=== PATIENT | male | born 1960 | race Caucasian/White ===

== ENCOUNTER 2017-09-27 18:47 | Emergency (ER) | payer OTHER ==
[2017-09-27 19:16] VITALS: BP 141/83
--- NOTE | 2017-09-27 20:03 | UC ---
Knee Pain HPI - HPI Summary HPI Summary: injured left knee while shoveling todays - - History of Current Complaint Hx Obtained From: Patient Onset/Duration: Sudden Onset Severity Initially: Mild Severity Currently: Mild Location Of Injury: left knee Pain Intensity: 0 Character: Aching Aggravating Factor(s): Movement, Weight Bearing Alleviating Factor(s): Rest Able to Bear Weight: Yes <Krystal Ahumada - Last Filed: 09/27/17 21:24> <Carmela Bernardo - Last Filed: 09/28/17 09:12> - History of Current Complaint Chief Complaint: UCLowerExtremity Stated Complaint: LEFT KNEE PAIN Time Seen by Provider: 09/27/17 19:57 - Allergies/Home Medications Allergies/Adverse Reactions: Allergies Allergy/AdvReac Type Severity Reaction Status Date / Time No Known Allergies Allergy Verified 09/08/13 17:52 Home Medications: Home Medications Metoprolol Tartrate TAB* [Lopressor TAB*] 50 mg PO DAILY 09/27/17 [History Confirmed 09/27/17] Multivit-Min/FA/Lycopen/Lutein [Men 50 Plus Multivitamin Tab] 1 each PO DAILY [History Confirmed 09/27/17] PMH/Surg Hx/FS Hx/Imm Hx Previously Healthy: No Endocrine History: Dyslipidemia Cardiovascular History: Hypertension - Surgical History Surgical History: Yes Surgery Procedure, Year, and Place: cardiac stent - Family History Known Family History: Positive: None - Social History Occupation: Employed Full-time Lives: With Family Alcohol Use: Daily Substance Use Type: None Smoking Status (MU): Current Every Day Smoker Type: Cigarettes Amount Used/How Often: 1/2 PPD Length of Time of Smoking/Using Tobacco: 30 YRS Have You Smoked in the Last Year: Yes When Did the Patient Quit Smoking/Using Tobacco: 2 years ago <Krystal Ahumada - Last Filed: 09/27/17 21:24> Review of Systems Constitutional: Negative Skin: Negative Eyes: Negative ENT: Negative Respiratory: Negative Cardiovascular: Negative Gastrointestinal: Negative Genitourinary: Negative Motor: Negative Neurovascular: Negative Musculoskeletal: Arthralgia - left knee Neurological: Negative Psychological: Negative Is Patient Immunocompromised?: No All Other Systems Reviewed And Are Negative: Yes <Krystal Ahumada - Last Filed: 09/27/17 21:24> Physical Exam Triage Information Reviewed: Yes Appearance: Well-Appearing, No Pain Distress, Well-Nourished Vital Signs: Initial Vital Signs Temp 98 F 09/27/17 19:09 Pulse 77 09/27/17 19:09 Resp 18 09/27/17 19:09 BP 141/83 09/27/17 19:09 Pulse Ox 97 09/27/17 19:09 Vital Signs Reviewed: Yes Eye Exam: Normal Eyes: Positive: Conjunctiva Clear ENT Exam: Normal ENT: Positive: Normal ENT inspection, Hearing grossly normal. Negative: Trismus , Muffled voice, Hoarse voice Dental Exam: Normal Neck exam: Normal Neck: Positive: Supple, Nontender Respiratory Exam: Normal Respiratory: Positive: Chest non-tender, No respiratory distress, No accessory muscle use Cardiovascular Exam: Normal Cardiovascular: Positive: RRR, Pulses Normal, Brisk Capillary Refill Musculoskeletal Exam: Normal Musculoskeletal: Positive: Strength Intact, ROM Intact, No Edema Neurological Exam: Normal Neurological: Positive: Alert Psychological Exam: Normal Psychological: Positive: Normal Response To Family, Age Appropriate Behavior Skin Exam: Normal <Krystal Ahumada - Last Filed: 09/27/17 21:24> Vital Signs: Initial Vital Signs Temp 98 F 09/27/17 19:09 Pulse 77 09/27/17 19:09 Resp 18 09/27/17 19:09 BP 141/83 09/27/17 19:09 Pulse Ox 97 09/27/17 19:09 <Carmela Bernardo - Last Filed: 09/28/17 09:12> Diagnostics - Radiology No standard instances Xray Interpretation: Positive (See Comments) - Patient Name: CHARLI DONNELLY Medical Record#: [id number] Ordering Physician: Carmela Bernardo MD Acct.#: [id number] : 1960 Age: 57 Sex: M Location: [facility] Exam Date: 09/27/171917 ADM Status: REG ER Order Information: KNEE LEFT 4+ VWS Accession Number: [id number] CPT: 69861 Indication: Posterior aspect LEFT knee radiating into the calf following possible hyperextension injury today. Comparison: No relevant prior exams available on the [facility] for comparison. Technique: LEFT knee: AP, tunnel, lateral, sunrise views. Report: Negative for joint effusion , articular malalignment, or fracture. Minimal osteophytosis. Mild medial joint compartment joint space narrowing. Irregularity in the contour of the subchondral bone at the medial facet of the undersurface of the patella. 1.1 cm intra-articular body at the paracentral posterior medial joint compartment. Unremarkable soft tissue contours. IMPRESSION: 1. Negative for fracture. 2. Osteoarthritis most prominent at the patellofemoral joint. 3. 1.1 cm intra- articular body at the paracentral posterior medial joint compartment. <Electronically signed by Osvaldo Michele MD in [place]> 09/27/172020 Dictated By: Osvaldo Michele MD Dictated Date/Time: 09/27/172020 Transcribed Date/Time: 09/27/172017 Copy to: CC:Tristen López MD; Carmela Bernardo MD Imaging - [facility] - [facility] [address] [place] [address] ph [phone] ph [phone]) ph ([phone]) 1 of 1 Radiology Interpretation Completed By: ED Physician, Radiologist <Krystal Ahumada - Last Filed: 09/27/17 21:24> Knee Pain Course/Dx - Course Course Of Treatment: mac wrap, crutches, naproxen, hydrocodone, follow with orthopedic MD, follow blood pressure with pcp - Differential Dx/Diagnosis Provider Diagnoses: left knee sprain, elevated Blood pressure with history of hypertension <Krystal Ahumada - Last Filed: 09/27/17 21:24> Discharge - Sign-Out/Discharge Documenting (check all that apply): Discharge/Admit/Transfer - Billing Disposition and Condition Condition: STABLE Disposition: HOME <Krystal Ahumada - Last Filed: 09/27/17 21:24> - Billing Disposition and Condition Condition: STABLE Disposition: HOME <Carmela Bernardo - Last Filed: 09/28/17 09:12> - Discharge Plan Condition: Stable Disposition: HOME Prescriptions: Hydrocodone/Acetaminophen [Hydrocodone-Acetamin 5-325 mg] 1 each PO Q6HR PRN # 16 tablet MDD 4 PRN Reason: Pain - Moderate To Severe Naproxen Sodium [Naproxen Sodium 500 MG TAB] 500 mg PO BID PRN #30 tab PRN Reason: Pain Scale 1-5 Patient Education Materials: Knee Sprain (ED), Hypertension (ED) Forms: *Work Release Referrals: Yonatan Ch MD [Medical Doctor] - 2 Days Tristen López MD [Primary Care Provider] - 2 Weeks Attestation Statement User Type: Provider - I was available for consult. This patient was seen by the [facility]. The patient was not presented to, seen by, or examined by me. -Niki <Carmela Bernardo - Last Filed: 09/28/17 09:12>
--- NOTE | 2017-09-27 20:24 | RAD ---
Indication: Posterior aspect LEFT knee radiating into the calf following possible hyperextension injury today. Comparison: No relevant prior exams available on the [facility] for comparison. Technique: LEFT knee: AP, tunnel, lateral, sunrise views. Report: Negative for joint effusion, articular malalignment, or fracture. Minimal osteophytosis. Mild medial joint compartment joint space narrowing. Irregularity in the contour of the subchondral bone at the medial facet of the undersurface of the patella. 1.1 cm intra-articular body at the paracentral posterior medial joint compartment. Unremarkable soft tissue contours. IMPRESSION: 1. Negative for fracture. 2. Osteoarthritis most prominent at the patellofemoral joint. 3. 1.1 cm intra-articular body at the paracentral posterior medial joint compartment.
[2017-09-27] MEDS ORDERED: HYDROcodone/ACETAMIN 5-325 MG* 1 TAB PO ONE (20:51)
== END 2017-09-27 21:12 | disposition home or self-care (01) ==
LOC: UCCORT 18:47
DX: S83.92XA Sprain of unspecified site of left knee, initial encounter (principal); Y93.H1 Activity, digging, shoveling and raking; Y92.9 Unspecified place or not applicable; Y99.9 Unspecified external cause status; I10 Essential (primary) hypertension; F17.210 Nicotine dependence, cigarettes, uncomplicated
CPT/HCPCS: 99203; G0463

== ENCOUNTER 2018-02-26 11:31 | Emergency (ER) | payer OTHER ==
[2018-02-26 11:50] VITALS: BP 141/79
--- NOTE | 2018-02-26 12:28 | UC ---
Ear Complaint HPI - HPI Summary HPI Summary: Pt c/o gradual onset of right lower jaw pain that radiates to right ear. Pt c/o swelling at the gonial angle. Pt states the pain worsens with chewing and with opening and closing mouth. Pt has dentures that he has had "forever" and denies any recent injury or dental trauma - History of Current Complaint Chief Complaint: UCSkin Stated Complaint: RIGHT EAR SWELLING Time Seen by Provider: 02/26/18 12:02 Hx Obtained From: Patient Onset/Duration: Gradual Onset, Lasting Days, Still Present Severity Initially: Mild Severity Currently: Moderate Pain Intensity: 6 Associated Signs/Symptoms: Positive: Swelling @ - right mandibualr angle - Allergies/Home Medications Allergies/Adverse Reactions: Allergies Allergy/AdvReac Type Severity Reaction Status Date / Time No Known Allergies Allergy Verified 02/26/18 11:44 PMH/Surg Hx/FS Hx/Imm Hx Previously Healthy: Yes - Surgical History Surgical History: Yes Surgery Procedure, Year, and Place: cardiac stent 2003 - Family History Known Family History: Positive: Cardiac Disease - Social History Occupation: Employed Full-time Lives: With Family Alcohol Use: Daily Substance Use Type: None Smoking Status (MU): Current Every Day Smoker Type: Cigarettes Amount Used/How Often: 1/2 PPD Length of Time of Smoking/Using Tobacco: 30 YRS Have You Smoked in the Last Year: Yes When Did the Patient Quit Smoking/Using Tobacco: 2 years ago Review of Systems Constitutional: Negative Skin: Negative Eyes: Negative ENT: Ear Ache, Other - jaw pain Respiratory: Negative Cardiovascular: Negative Gastrointestinal: Negative Genitourinary: Negative Motor: Negative Neurovascular: Negative Musculoskeletal: Negative Neurological: Negative Psychological: Negative Is Patient Immunocompromised?: No All Other Systems Reviewed And Are Negative: Yes Physical Exam Triage Information Reviewed: Yes Appearance: Well-Appearing Vital Signs: Initial Vital Signs Temp 99.0 F 02/26/18 11:45 Pulse 91 02/26/18 11:45 Resp 15 02/26/18 11:45 BP 141/79 02/26/18 11:45 Pulse Ox 96 02/26/18 11:45 Vital Signs Reviewed: Yes Eye Exam: Normal ENT Exam: Normal Dental Exam: Normal Neck: Positive: Other: - mild generalized swelling at right mandibualr angle, submaxillary lymph node, no palpalbe node or mass, no tragal tenderness Respiratory Exam: Normal Cardiovascular Exam: Normal Musculoskeletal Exam: Normal Neurological Exam: Normal Psychological Exam: Normal Skin Exam: Normal Ear Complaint Course/Dx - Course Course Of Treatment: I instructed the pt to seek further evaluation and testing with PCP and dental provider - Differential Dx/Diagnosis Differential Diagnosis/HQI/PQRI: Mastoiditis, Otitis Media, TMJ Syndrome, Trigeminal Nueralgia Provider Diagnoses: jaw pain. soft tissue swelling. possible salivary gland stone. possible dental abscess Discharge - Sign-Out/Discharge Documenting (check all that apply): Patient Departure All imaging exams completed and their final reports reviewed: No Studies - Discharge Plan Condition: Stable Disposition: HOME Patient Education Materials: Temporomandibular Disorder (ED) Referrals: Tristen López MD [Primary Care Provider] - As Soon As Possible Additional Instructions: Please follow up with your PCP and your dental provider as soon as possible. If your symptoms worsen, please seek care at the closest emergency room as soon as possible. - Billing Disposition and Condition Condition: STABLE Disposition: Home
== END 2018-02-26 12:34 | disposition home or self-care (01) ==
LOC: UCCORT 11:31
DX: R68.84 Jaw pain (principal); M79.9 Soft tissue disorder, unspecified; F17.210 Nicotine dependence, cigarettes, uncomplicated; Z98.61 Coronary angioplasty status
CPT/HCPCS: 99211; G0463